=== PATIENT | female | born 1990 | race Caucasian/White ===

== ENCOUNTER 2019-08-15 22:49 | Inpatient (IN) | payer OTHER ==
[~2019-08-15] VITALS: Ht 162.6 cm; Wt 43.5 kg
[2019-08-15] MEDS ORDERED: IV NS 0.9% 1,000 ML BAG IV ONE (23:00)
--- NOTE | 2019-08-15 23:10 | NUR ---
PATIENT CAME TO ER RA C/O WEAKNESS. PATIENT PLACED IN BED 11 STATING THAT SHE WANTS TO LEAVE AND THIRSTY. PT DOES NOT ADMIT TO DRUG USE. PATIENT STATES THAT SHE HAS DKA. AAOX2. AWAKE AND CONFUSED. NO SOB. BREATHING EVENLY AND UNLABORED. CONNECTED TO MONITOR. BLOOD SUGAR- 176
--- NOTE | 2019-08-15 23:22 | NUR ---
MARSII AT BEDSIDE FOR EVALUATION
--- NOTE | 2019-08-15 23:22 | NUR ---
DAIRY EQUIPMENT SPECIALIST AT BEDSIDE FOR BLOOD DRAW.
--- NOTE | 2019-08-15 23:38 | NUR ---
SLUMBER ROOM ATTENDANT AT BEDSIDE FOR XRAY
[2019-08-15 23:40] LABS: BASOPHILS # (AUTO) 0.1 /CMM (0.0-0.2); BASOPHILS % (AUTO) 0.5 % (0.0-2.0); EOSINOPHILS % (AUTO) 0.5 % (0.0-6.0); HEMATOCRIT 44 % (33-45); HEMOGLOBIN 14.4 g/dL (11.5-14.8); LYMPHOCYTES # (AUTO) 1.8 /CMM (0.8-4.8); LYMPHOCYTES % (AUTO) 18.6 % (20.0-44.0); MEAN CORPUSCULAR HGB CONC 33 g/dl (31.0-36.0); MEAN CORPUSCULAR VOLUME 92 fL (82-100); MONOCYTES # (AUTO) 0.5 /CMM (0.1-1.30); MONOCYTES % (AUTO) 4.9 % (2.0-12.0); NEUTROPHILS # (AUTO) 7.5 /CMM (1.8-8.9); NEUTROPHILS % (AUTO) 75.5 % (43.0-81.0); PLATELET COUNT (AUTO) 574 /CMM (150-450)
[2019-08-15 23:46] LABS: ABG OXYGEN SATURATION 68.6 % (92.0-98.5); ABG PCO2 31.9 mmHg (35.0-45.0); ABG PH 7.333 (7.350-7.450); ABG PO2 35.6 mmHg (75.0-100.0); COHb 0.8 % (0.5-1.5); MetHb 0.5 % (0.0-1.5); O2Hb 67.7 % (94.0-97.0); SITE, ABG Other
[2019-08-15] MEDS ORDERED: ONDANSETRON HCL/PF 4 MG/2 ML VIAL ONE (23:48)
[2019-08-16] MEDS ORDERED: ONDANSETRON HCL/PF 4 MG/2 ML VIAL IV ONE
[2019-08-16 00:12] LABS: POTASSIUM 4.1 mmol/L (3.5-5.1)
--- NOTE | 2019-08-16 00:14 | NUR ---
ER SPOKE TO DR. RIVAS REGARDING PT ADMISSION.
[2019-08-16 00:18] LABS: ALBUMIN 3.8 g/dL (3.4-5.0); BILIRUBIN,DIRECT 0.1 mg/dL (0.0-0.2); BILIRUBIN,TOTAL 0.5 mg/dL (0.2-1.0); MAGNESIUM 2.2 mg/dL (1.8-2.4); PHOSPHORUS 1.9 mg/dL (2.5-4.9); TOTAL PROTEIN, SERUM 8.7 g/dL (6.4-8.2)
[2019-08-16] MEDS ORDERED: MAG HYDROX/AL HYDROX/SIMETH 30 ML UDC PO PRN (00:30)
[2019-08-16] MEDS ORDERED: MAGNESIUM HYDROXIDE 30 ML UDC PO PRN (00:30)
[2019-08-16] MEDS ORDERED: Z GUARD REMEDY 2 OZ OINT TP PRN (00:30)
[2019-08-16] MEDS ORDERED: IV NS 0.9% 1,000 ML IV SCH (00:30)
--- NOTE | 2019-08-16 00:35 | NUR ---
I&O CATH DONE, URINE SAMPLE COLLECTED AND SENT TO LAB.
[2019-08-16] MEDS ORDERED: LORAZEPAM INJ 2 MG/ML VIAL ONE (00:39)
[2019-08-16 00:40] LABS: APPEARANCE,URINE Clear (CLEAR); BILIRUBIN,URINE MODERATE (NEGATIVE); BLOOD, URINE Negative Ery/uL (NEGATIVE); COLOR,URINE Yellow (YELLOW); KETONES,URINE 80 (NEGATIVE); LEUKOCYTE ESTERASE ,URINE Negative (NEGATIVE); NITRITE, URINE Negative (NEGATIVE); PH,URINE 5.5 (5.0-8.0); PROTEIN,URINE 100 mg/dl (NEGATIVE); UGLUCOSE 500 MG/DL mg/dL (NEGATIVE); UROBILINOGEN,URINE 0.2 EU/dL (0.2)
[2019-08-16 01:00] VITALS: BP 132/88
[2019-08-16] MEDS ORDERED: LORAZEPAM INJ 2 MG/ML VIAL IV ONE (01:00)
--- NOTE | 2019-08-16 01:03 | NUR ---
report given to Renee WEBB.
[2019-08-16 01:10] LABS: ACETAMINOPHEN 0 ug/ml (10-30); ALCOHOL, BLOOD < 3 mg/dL (0-0); SALICYLATE 2.2 mg/dL (2.8-20.0)
--- NOTE | 2019-08-16 01:10 | NUR ---
MS RN OPENING NOTES: RECEIVED PT ON 2LPM VIA NC AND IS TOLERATING WELL. PT APPEARS TO BE LETHARGIC BUT IS ABLE TO STATE A FEW WORDS. "I DON'T FEEL GOOD." PT APPEARS T OBE ALTERED. PT HAS IV ON R INDEX FINGER #24G AND IS BEING INFUSED WITH 2L OF NS COMING FROM ER. BED KEPT IN LOW, LOCKED POSITION, AND SIDE RAILS X 3 UP. BED ALARM ACTIVATED. WILL CONTINUE TO MONITOR PT.
[2019-08-16 01:17] LABS: BACTERIA,URINE Few /HPF (None Seen); SQUAMOUS EPITHELIAL CELL,UR Few /HPF (None Seen)
[2019-08-16] MEDS: LORAZEPAM INJ 2 MG/ML VIAL IV PRN ×4 (06:25→23:04)
--- NOTE | 2019-08-16 06:28 | NUR ---
MS RN NOTES: PT MORE AWAKE AND STARTING TO SHOW SIGNS OF WITHDRAWAL. "I WANT TO SPEAK TO THE DOCTOR ABOUT MY OPIATE ABUSE." EXPLAINED TO HER THAT DOCTORS WILL BE MAKING THEIR ROUNDS SOON. PT WAS ADMINISTERED ATIVAN 1MG IV. WILL CONTINUE TO MONITOR.
--- NOTE | 2019-08-16 06:47 | NUR ---
MS RN CLOSING NOTES: ALL NEEDS WERE ATTENDED AND ANTICIPATED FOR. PT APPEARS TO BE MORE AWAKE THIS MORNING SHE IS ASKING TO SPEAK TO THE DOCTOR AND VERBALIZING HER OPIATE ADDICTION. PT IS MUCH MORE AROUSABLE COMPARED TO EARLIER AND OPENED HER EYES BRIEFLY. PT APPEARS TO BE WITHDRAWING. PT REMAINS ON 2LPM VIA NC AND IS TOLERATING WELL. NO SOB NOTED. NO S/S OF DISTRESS. PT HAS IV ON R INDEX FINGER #24 G AND IS BEING INFUSED WITH IV NS AT 100ML/HR. BED KEPT IN LOW, LOCKED POSITION, AND SIDE RAILS X 3UP. BED ALARM ACTIVATED. WILL ENDORSE TO AM NURSE FOR ANDREI.
[2019-08-16] MEDS ORDERED: K PHOS NEUTRAL 250 MG TABLET PO ONE (07:30)
[2019-08-16 08:00] VITALS: BP 140/86
[2019-08-16] MEDS: ONDANSETRON HCL/PF 4 MG/2 ML VIAL IVP PRN ×2 (10:35→20:06)
[2019-08-16] MEDS: IV NS 0.9% 1,000 ML IV PRN (10:44)
--- NOTE | 2019-08-16 11:00 | NUR ---
RN MS NOTES PATIENT VOMITING 4X TIMES AFTER CONSUMING FLUIDS.
[2019-08-16] MEDS ORDERED: DEXTROSE 50%-WATER 50 ML DISP.SYRIN IV PRN ×2 (11:30→13:30)
[2019-08-16] MEDS ORDERED: BLOOD SUGAR DIAGNOSTIC 1 EACH STRIP IN SCH (12:00)
--- NOTE | 2019-08-16 12:00 | NUR ---
RN NOTES PATIENT YELLING, MULTIPLE TIMES INSIDE THE ROOM. PATIENT IS NOT COOPERATIVE
[2019-08-16] MEDS: BLOOD SUGAR DIAGNOSTIC 1 EACH STRIP IN SCH ×3 (12:20→22:00)
[2019-08-16] MEDS: INSULIN REGULAR, HUMAN 100 UNIT/ML 3 ML VIAL SQ PRN ×2 (12:23→13:43)
--- NOTE | 2019-08-16 12:26 | NUR ---
RN MS NOTES PATIENT BLOOD SUGAR 502 - CALLED MD 10 UNITS OF INSULIN GIVEN PER DR ORDER
--- NOTE | 2019-08-16 12:28 | NUR ---
director of career services consult requested by Viet Santos [facility] for homelessness. Pt is a 29 year old female admitted to [facility] for opiate withdrawal. SW attempted to meet with pt and conduct social media marketing specialist assessment but pt unable to cooperate at this time due to physical state. SW will reattempt to assess pt at a later time.
--- NOTE | 2019-08-16 14:30 | NUR ---
RN MS NOTES ATTENDING NOTIFIED ABOUT PATIENT CONDITION. WITH BLOOD SUGAR AND WITHDRAWAL SYMPTOMS
--- NOTE | 2019-08-16 15:37 | NUR ---
RN NOTES PATIENT 1530 TOOK OFF MIDLINE
[2019-08-16 16:00] VITALS: BP 150/85
--- NOTE | 2019-08-16 16:00 | NUR ---
RN MS NOTES PATIENT HAS SITTER BY BED SIDE.
--- NOTE | 2019-08-16 17:00 | NUR ---
MS RN NOTES PATIENT FAMILY MEMBERS ARE CONCERNED THAT THE PATIENT IS NOT READY TO GO HOME AND LEAVE THE HOSPITAL. FAMILY IS CONCERNED ABOUT FMAILY NEED TO PAY FOR ANTIBIOTICS FOR THE PATIENT . CASE MANAGEMENT INFORMED
--- NOTE | 2019-08-16 17:04 | NUR ---
RN MS NOTES PATIENT BLOOD SUGAR 176 - NO COVERAGE- PATIENT IS VOMITING / NAUSEA.
--- NOTE | 2019-08-16 17:20 | NUR ---
MS RN NOTES PATIENT WAS TRYING TO GET OUT OF BED, TOOK OFF BOTH HER IV, PATIENT IS UN COOPERATIVE WITH HER CARE . DISTRACTIONS AND OTHER METHODS DONE PRIOR TO RESTRAINTS . PATIENT NEEDS SITTER AND RESTRAINTS BECAUSE PATIENTS GETS OUT OF BED CONSTANTLY. AND UNCOOPERATIVE
--- NOTE | 2019-08-16 18:45 | NUR ---
MS RN NOTES ATIVAN GIVEN AT 1600 IM PATIENT HAD NO MIDLINE. FORGOT TO SCAN THE MEDICATION . INPUTED AT 1830
--- NOTE | 2019-08-16 18:58 | NUR ---
MS RN NOTES PATIENT A/0 X1. PATIENT IS ON THE BED. WITH SITTER AT MEDSIDE. PATIENT ALSO HAS MEDIACAL SOFT RESTRAINTS BILATER ARMS. PATIENT WAS PUTTING IV AND ATTEMPTING TO BITE AND KICK STAFF. PATIENT IS CURRENTLY ON TELE MONITOR PER ADMITTED ORDERS .PATIENT IS SATURATING WELL NO SIGNS OF SOB, NO PAIN, EVEN AND UNLABORED BREATHING. BED LOCKED AND LOWEST POSITION, CALL LIGHT WITH IN REACH. ALL SAFETY PRECAUTIONS IMPLEMENTED. SITTER AT BED SIDE
--- NOTE | 2019-08-16 19:20 | NUR ---
MS RN NOTES RECEIVED ON BED APPEARS DROWSY,JUST MEDICATED WITH ATIVAN BY DAY NURSE.ON BILATERAL SOFT RESTRAINTS.SITTER AT BEDSIDE.IVF NS AT 75ML/HR RATE IN PROGRESS ON RADHA PICC LINE.WILL CONTINUE TO MONITOR STATUS.
[2019-08-16 20:00] VITALS: BP 142/91
--- NOTE | 2019-08-16 20:06 | NUR ---
MS RN NOTES VOMITED 2X,MEDICATED WITH ZOFRAN 4MG IV ORDERED PRN FOR N/V
--- NOTE | 2019-08-16 20:25 | NUR ---
MS RN NOTES EVENING CARE RENDERED,TOLERATED WELL,REPOSITION TO COMFORT
--- NOTE | 2019-08-16 23:04 | NUR ---
MS RN NOTES VERY RESTLESS,SCREAMS AT TIMES,MEDICATED WITH ATIVAN 0.5MG IV ORDERED PRN FOR ANXIETY/AGITATION.BILATERAL SOFT WRIST RESTRAINTS IN USED.SITTER AT BEDSIDE.
[2019-08-17] VITALS: BP 138/86
--- NOTE | 2019-08-17 | NUR ---
MS RN NOTES ACCU-CHECK BLOOD SUGAR CHECK 465,COVERED WITH HUMULIN R 10 UNITS GIVEN SQ ON LEFT DELTOID PER AGGRESSIVE SLIDING SCALE.
[2019-08-17] MEDS: BLOOD SUGAR DIAGNOSTIC 1 EACH STRIP IN SCH ×6 (00:07→22:23)
--- NOTE | 2019-08-17 00:15 | NUR ---
MS RN NOTES DR RIVAS MADE AWARE OF OF PATIENT BLOOD SUGAR WITH ORDER TO GIVE ANOTHER 8 UNITS OF HUMULIN R SQ NOTED AND CARRIED OUT.
[2019-08-17] MEDS: INSULIN REGULAR, HUMAN 100 UNIT/ML 3 ML VIAL SQ PRN ×3 (00:17→09:28)
--- NOTE | 2019-08-17 00:30 | NUR ---
MS RN NOTES HUMULIN R 8 UNITS GIVEN SQ ON RIGHT DELTOID ORDERED.WILL RE CHECK BLOOD SUGAR IN AN HOUR
[2019-08-17] MEDS: IV NS 0.9% 1,000 ML IV PRN (03:42)
[2019-08-17 04:00] VITALS: BP 148/93
--- NOTE | 2019-08-17 06:00 | NUR ---
MS RN NOTES ACCU-CHECK BLOOD SUGAR CHECK 199,COVERED WITH HUMULIN R 4 UNITS PER AGGRESSIVE SLIDING SCALE.
[2019-08-17 06:34] LABS: BASOPHILS # (AUTO) 0.1 /CMM (0.0-0.2); BASOPHILS % (AUTO) 0.6 % (0.0-2.0); HEMATOCRIT 39 % (33-45); HEMOGLOBIN 12.9 g/dL (11.5-14.8); LYMPHOCYTES # (AUTO) 1.9 /CMM (0.8-4.8); LYMPHOCYTES % (AUTO) 14.8 % (20.0-44.0); MEAN CORPUSCULAR HGB CONC 33 g/dl (31.0-36.0); MEAN CORPUSCULAR VOLUME 91 fL (82-100); MONOCYTES % (AUTO) 7.4 % (2.0-12.0); NEUTROPHILS # (AUTO) 9.9 /CMM (1.8-8.9); NEUTROPHILS % (AUTO) 77.2 % (43.0-81.0); PLATELET COUNT (AUTO) 561 /CMM (150-450); RED BLOOD CELL COUNT(AUTO) 4.32 MIL/uL (4.0-5.2); WHITE BLOOD COUNT (AUTO) 12.9 K/uL (4.3-11.0)
--- NOTE | 2019-08-17 06:45 | NUR ---
MS RN NOTES STILL DROWSY,BILATERAL SOFT RESTRAINTS IN USED,GOOD HANDS CIRCULATION NOTED.MORNING CARE RENDERED BY SITTER.NAUSEA/VOMITING IMPROVED.IVF IN PROGRESS.IN NO ACUTE DISTRESS.WILL ENDORSE TO DAY NURSE FOR ANDREI.
[2019-08-17 06:54] LABS: CALCIUM, SERUM 8.9 mg/dL (8.5-10.1); CREATININE 0.9 mg/dL (0.6-1.3); MAGNESIUM 2.1 mg/dL (1.8-2.4); PHOSPHORUS 2.6 mg/dL (2.5-4.9); POTASSIUM 4.6 mmol/L (3.5-5.1)
--- NOTE | 2019-08-17 07:00 | NUR ---
RN MS NOTES OPENING PATIENT A/O X1 PATIENT IS ASLEEP WHEN, WAKING THAT PATIENT UP THE PATIENT WILL MUR MUR AND TURN HER HEAD. PATIENT IS ON TELE MONITOR WITH SR, IN THE 90'S. NO SOB, NO ACUTE RESPIRATORY DISTRESS. PATIENT IS CURRENTLY ON BED REST. PATIENT HAS BILATERAL SOFT WRIST RESTRAINTS, CHECK BOTH WRIST FOR SKIN DAMANGE AND DISCOLORATION - NONE PATIENT HAS L BUTTOCKS BRUISE AND BILATERAL HEEL REDNESS. PATIENT HAS A RADHA MIDLINE. WITH NORMAL NS AT 100 ML/HR . ALL SAFETY PRECAUTIONS IMPLEMENTED. BED LOCKED AND LOWEST POSITION, CALL LIGHT WITH IN REACH. SITTER AT BED SIDE.
[2019-08-17 08:00] VITALS: BP 140/86
--- NOTE | 2019-08-17 09:28 | NUR ---
MS RN NOTES PATIENT BLOOD SUGAR 219 HOLD INSULIN - COVERAGE 6 AM WILL RECHECK AT NEXT BLOOD SUGAR CHECK
--- NOTE | 2019-08-17 10:26 | NUR ---
account services coordinator follow-up: SS consult requested by Viet Santos [facility] for homelessness. Pt is a 29 year old female admitted to [facility] for opiate withdrawal. SW reattempted to meet with pt today to conduct social worker psychiatric assessment but pt continues to be unable to engage in interview due to physical state. Pt is laying down with eyes closed; appears to be sleeping and is minimally responsive to SW when attempting to arouse. SW will reattempt to assess pt at a later time.
[2019-08-17 12:00] VITALS: BP 131/86
[2019-08-17 16:52] VITALS: BP 136/79
--- NOTE | 2019-08-17 18:21 | NUR ---
MS RN NOTES PATIENT BLOOD SUGAR 150. INSULIN HOLD. PATIENT ONLY EATTING A FEW BITES OF FOOD AND FALL ASLEEP. PATIENT STILL AT BED SIDE.
--- NOTE | 2019-08-17 18:43 | NUR ---
RN MS NOTES CLOSING PATIENT A/O X1 PATIENT IS RESTING COMFORTABLY ON THE BED. PATIENT HAS TELE MONITOR 90'S SR WITH OCCASIONAL PVC. PATIENT IS ON RA - AND TOLERATING WELL. PATIENT NO SOB, EVEN AND UNLABORED BREATHING. NO SIGNS OF ACUTE RESPIRATORY DISTRESS. PATIENT IS EATING BUT FALLS ASLEEP. PATIENT IS MORE COOPERATIVE WITH CARE. PATIENT STATED THAT SHE IS GLAD SHE IS HERE AND SHE THINKS SHE WOULD OF IF SHE WASN'T AT THE HOSPITAL. BED LOCKED AND LOWEST POSITION CALL LIGHT WITH IN REACH SITTER AT BED SITE. ALL SAFETY PRECAUTIONS IMPLEMENTED PER HOSPITAL PROTOCOL
--- NOTE | 2019-08-17 19:10 | NUR ---
MS/RN OPENING NOTES: RECEIVED PATIENT SLEEPING IN BED. RESPONDS TO VERBAL COMMANDS. A/O X1. PATIENT PATIENT TALKING INCOMPREHENSIBLE WORDS. ON TELE MONITOR WITH ST, IN THE 100'S. NO SOB, NO ACUTE RESPIRATORY DISTRESS. PATIENT IS CURRENTLY ON BED REST. PATIENT HAS BILATERAL SOFT WRIST RESTRAINTS, CHECK BOTH WRIST FOR SKIN DAMAGE AND DISCOLORATION. NONE AT THIS TIME. PATIENT HAS L BUTTOCKS BRUISE AND BILATERAL HEEL HAS REDNESS. PATIENT HAS LEFT UA MIDLINE. RUNNING NS AT 100 MLS/HR. ALL SAFETY PRECAUTIONS IMPLEMENTED. BED IS IN LOCKED AND LOWEST POSITION, CALL LIGHT WITH IN REACH. SITTER PRESENT AT BED SIDE. WILL CONTINUE MONITORING ACCORDINGLY.
[2019-08-17] MEDS: LORAZEPAM INJ 2 MG/ML VIAL IV PRN (20:17)
--- NOTE | 2019-08-17 20:17 | NUR ---
MS/RN NOTES: PATIENT IS RESTLESS AND VERY ANXIOUS, AND SCREAMING AT SITTER. PER PATIENT "I DON'T FEEL GOOD", ADMINISTERED ATIVAN 1 MG 0.5ML IV ORDERED PRN FOR ANXIETY/AGITATION. BILATERAL SOFT WRIST RESTRAINTS IN USED. SITTER PRESENT AT BEDSIDE. VITAL SIGNS WNL.
[2019-08-17 21:00] VITALS: BP 132/71
[2019-08-17] MEDS: *INSULIN REGULAR(HUMULIN R)HUM 100 UNIT/ML VIAL SQ PRN (22:37)
--- NOTE | 2019-08-17 22:40 | NUR ---
MS/RN NOTES: ACCU CHECK TAKEN AT 2200 WITH BLOOD SUGAR LEVEL OF 484. PROTOCOL INITIATED, REPEATED AND BLOOD SUGAR IS 497. NOTIFIED MD. 10 UNITS OF REGULAR INSULIN GIVEN PER SLIDING SCALE. DR. RIVAS IS AWARE AND ORDERED FOR ADDITIONAL 10 UNITS SQ ONCE. PATIENT IS IN STABLE CONDITION AT THIS TIME. SNACK (PUDDING) GIVEN AT BEDSIDE. WILL CONTINUE TO MONITOR PATIENT ACCORDINGLY. SITTER PRESENT AT BED SIDE.
[2019-08-17] MEDS ORDERED: INSULIN REGULAR, HUMAN 100 UNIT/ML 10 ML VIAL SQ ONE (23:00)
[2019-08-18] MEDS: BLOOD SUGAR DIAGNOSTIC 1 EACH STRIP IN SCH ×8 (00:36→21:38)
[2019-08-18] MEDS: *INSULIN REGULAR(HUMULIN R)HUM 100 UNIT/ML VIAL SQ PRN ×2 (00:41→21:40)
--- NOTE | 2019-08-18 00:44 | NUR ---
MS/RN NOTES: ACCU CHECK TAKEN FOR 0000 WITH BLOOD SUGAR LEVEL OF 356. 10 UNITS OF REGULAR INSULIN GIVEN PER SLIDING SCALE. PATIENT IS IN STABLE CONDITION AT THIS TIME. SMALL SNACK GIVEN AT BED SIDE. WILL CONTINUE TO MONITOR PATIENT ACCORDINGLY. SITTER PRESENT AT BED SIDE.
[2019-08-18] MEDS: IV NS 0.9% 1,000 ML IV PRN (01:43)
[2019-08-18] MEDS: LORAZEPAM INJ 2 MG/ML VIAL IV PRN ×2 (04:34→19:16)
--- NOTE | 2019-08-18 04:34 | NUR ---
MS/RN NOTES: PATIENT APPEARS ANXIOUS, AND YELLING INCOMPREHENSIBLE SENTENCES, ADMINISTERED ATIVAN 1 MG/0.5ML IV ORDERED PRN FOR ANXIETY/AGITATION. BILATERAL SOFT WRIST RESTRAINTS IN USED. SITTER PRESENT AT BEDSIDE. VITAL SIGNS WNL.
[2019-08-18] MEDS: INSULIN REGULAR, HUMAN 100 UNIT/ML 3 ML VIAL SQ PRN ×2 (06:06→11:46)
--- NOTE | 2019-08-18 06:26 | NUR ---
MS/RN CLOSING NOTES: Patient is in stable condition. No complains of pain at this time. Remains on room air, no sob noted, A/Ox1. No significant changes in condition. On regular diet. IV access on the left upper arm PICC line, patent and intact, NS running @ 100 ml per hour. Blood sugar level of 92 at 0600. No insulins given as per sliding scale order. Safety measures kept in place. Bed at the lowest setting and locked, call light within reach, side rails up x2. All nursing needs met and provided. Kept patient warm and comfortable throughout the shift. Sitter at bedside. Will give report to day shift RN for ANDREI bedside.
[2019-08-18 06:51] LABS: BASOPHILS % (AUTO) 0.3 % (0.0-2.0); EOSINOPHILS % (AUTO) 0.1 % (0.0-6.0); HEMATOCRIT 35 % (33-45); HEMOGLOBIN 11.6 g/dL (11.5-14.8); LYMPHOCYTES # (AUTO) 2.7 /CMM (0.8-4.8); LYMPHOCYTES % (AUTO) 29.3 % (20.0-44.0); MEAN CORPUSCULAR HGB CONC 34 g/dl (31.0-36.0); MEAN CORPUSCULAR VOLUME 89 fL (82-100); MONOCYTES # (AUTO) 0.7 /CMM (0.1-1.30); MONOCYTES % (AUTO) 7.3 % (2.0-12.0); NEUTROPHILS # (AUTO) 5.9 /CMM (1.8-8.9); PLATELET COUNT (AUTO) 453 /CMM (150-450); RED BLOOD CELL COUNT(AUTO) 3.88 MIL/uL (4.0-5.2); WHITE BLOOD COUNT (AUTO) 9.3 K/uL (4.3-11.0)
[2019-08-18 07:05] LABS: CALCIUM, SERUM 8.4 mg/dL (8.5-10.1); CREATININE 0.7 mg/dL (0.6-1.3); POTASSIUM 3.3 mmol/L (3.5-5.1)
[2019-08-18 08:00] VITALS: BP 118/71
[2019-08-18] MEDS ORDERED: POTASSIUM CHLORIDE 20 MEQ TAB.PRT.SR PO SCH (11:00)
[2019-08-18] MEDS: ACETAMINOPHEN 325 MG TABLET PO PRN (11:16)
[2019-08-18] MEDS: ONDANSETRON HCL/PF 4 MG/2 ML VIAL IVP PRN (12:31)
[2019-08-18 16:00] VITALS: BP 137/84
--- NOTE | 2019-08-18 19:51 | NUR ---
MS WEBB NOTES RECEIVED PATIENT AWAKE IN BED WITH NO DISTRESS NOTED. CALL LIGHT WITHIN REACH. SITTER AT BEDSIDE. PICC LINE INTACT AND PATENT. NO C/O PAIN OR DISCOMFORT. BED IN LOW LOCK SETTING. ROOM FREE OF CLUTTER AND BELONGINGS KEPT NEAR BEDSIDE. WILL CONTINUE TO MONITOR. Addendum: 08/18/19 at 2020 by LUIS AMAYA RN *ERROR* MIDLINE INTACT AND PATENT
--- NOTE | 2019-08-18 22:25 | NUR ---
HS BS 460 AND COVERED WITH REGULAR INSULIN 10UNITS ORDERED. AFTER RECHECK, BS 403. DR. RIVAS MADE AWARE WITH ORDER FOR ADDITIONAL 10U REGULAR INSULIN. ORDER READ BACK, VERIFIED, NOTED AND CARRIED OUT. PATIENT ASLEEP IN STABLE CONDITION. ABLE TO AROUSE EASILY. WILL CONTINUE TO MONITOR
[2019-08-18] MEDS ORDERED: INSULIN REGULAR, HUMAN 100 UNIT/ML 10 ML VIAL SQ ONE (22:30)
--- NOTE | 2019-08-19 00:36 | NUR ---
CONTINUATION OF CARE GIVEN TO MCKENNA WEBB Addendum: 08/19/19 at 0039 by LUIS AMAYA RN PATIENT ASLEEP IN STABLE CONDITION
--- NOTE | 2019-08-19 00:36 | NUR ---
MS RN NOTES RECEIVED PT FROM SURJIT. PATIENT IN BED ASLEEP, ALERT AND ORIENTED X 2. BREATHING EVEN AND UNLABORED ON ROOM AIR. SHOWS NO SIGNS OF ACUTE DISTRESS, NO ACUTE PAIN. SITTER AT BEDSIDE. RADHA MIDLINE CLEAN DRY AND INTACT. SHOWS NO SIGN OF INFILTRATION, NO REDNESS. SAFETY PRECAUTIONS IN PLACE. BED LOWEST POSITION LOCKED AND CALL LIGHT KEPT WITHIN REACH. WILL CONTINUE TO MONITOR.
[2019-08-19] MEDS: IV NS 0.9% 1,000 ML IV PRN ×2 (06:02→14:48)
--- NOTE | 2019-08-19 06:35 | NUR ---
MS RN NOTES PATIENT IN BED ASLEEP, ALERT AND ORIENTED X 2. BREATHING EVEN AND UNLABORED ON ROOM AIR. SHOWS NO SIGNS OF ACUTE DISTRESS, NO ACUTE PAIN. SITTER AT BEDSIDE. RADHA MIDLINE CLEAN DRY AND INTACT. SHOWS NO SIGN OF INFILTRATION, NO REDNESS. ALL MEDICATIONS GIVEN DUE. SAFETY PRECAUTIONS IN PLACE. BED LOWEST POSITION LOCKED AND CALL LIGHT KEPT WITHIN REACH. WILL ENDORSE TO ONCOMING NURSE.
[2019-08-19] MEDS: BLOOD SUGAR DIAGNOSTIC 1 EACH STRIP IN SCH ×4 (06:37→21:39)
[2019-08-19] MEDS: INSULIN REGULAR, HUMAN 100 UNIT/ML 3 ML VIAL SQ PRN ×3 (06:39→17:09)
[2019-08-19 06:52] LABS: BASOPHILS % (AUTO) 0.2 % (0.0-2.0); EOSINOPHILS % (AUTO) 0.2 % (0.0-6.0); HEMATOCRIT 36 % (33-45); HEMOGLOBIN 11.8 g/dL (11.5-14.8); LYMPHOCYTES # (AUTO) 2.6 /CMM (0.8-4.8); LYMPHOCYTES % (AUTO) 31.8 % (20.0-44.0); MEAN CORPUSCULAR HGB CONC 33 g/dl (31.0-36.0); MEAN CORPUSCULAR VOLUME 90 fL (82-100); MONOCYTES # (AUTO) 0.5 /CMM (0.1-1.30); MONOCYTES % (AUTO) 6.6 % (2.0-12.0); NEUTROPHILS # (AUTO) 5.1 /CMM (1.8-8.9); NEUTROPHILS % (AUTO) 61.2 % (43.0-81.0); PLATELET COUNT (AUTO) 376 /CMM (150-450); RED BLOOD CELL COUNT(AUTO) 3.98 MIL/uL (4.0-5.2); WHITE BLOOD COUNT (AUTO) 8.3 K/uL (4.3-11.0)
[2019-08-19 07:03] LABS: CREATININE 0.7 mg/dL (0.6-1.3); POTASSIUM 3.8 mmol/L (3.5-5.1)
--- NOTE | 2019-08-19 07:37 | NUR ---
RN OPENING NOTE PT WAS RECEIVED IN BED AT LOWEST AND LOCKED POSITION WITH SIDE RAILS UP X2, A/O X2 CURRENTLY RESTING IN BED, SITTER AT BEDSIDE, NO S/S OF ANY PAIN OR DISTRESS AT THIS TIME, MIDLINE S PATENT AND INTACT WITH IVF RUNNING, LAST BS WAS 293 AND PER NIGHT RN SHE ADMINISTERED 12 UNITS, SAFETY PRECAUTIONS IN PLACE, CALL LIGHT IN REACH, WILL MONITOR ACCORDINGLY Addendum: 08/19/19 at 0914 by LATHA CHOI RN SITTER PRESENT AT BEDSIDE
[2019-08-19] MEDS: LORAZEPAM INJ 2 MG/ML VIAL IV PRN ×4 (09:06→21:38)
[2019-08-19] MEDS: ACETAMINOPHEN 325 MG TABLET PO PRN (12:33)
--- NOTE | 2019-08-19 12:46 | NUR ---
RN NOTE HOSPITALIST JASON JEFFERSON INFORMED OF PT CRYING AND COMPLAINING OF PAIN AND INFORMED THAT TYLENOL IS NOT WORKING FOR HER. ORDER RECEIVED FOR NORCO 5/325 Q6H PRN, WILL IMPLEMENT AND CARRY OUT.
[2019-08-19] MEDS: HYDROCODONE/APAP 5/325MG 1 EACH TABLET PO PRN (16:57)
--- NOTE | 2019-08-19 18:20 | NUR ---
RN CLOSING NOTE PT IN BED IN LOWEST AND LOCKED POSITION WITH SIDE RAILS UIP X2, CURRENTLY ASLEEP BUT A/O X2-3 BREATHING EVEN AND UNLABORED WITH NO DISTRESS OR PAIN AT THIS TIME, MIDLINE IS PATENT AND INTACT WITH IVF RUNNING, SITTER AT BEDSIDE, SAFETY PRECAUTIONS IN PLACE, CALL LIGHT IN REACH, ALL NEEDS ATTENDED TO, WILL ENDORSE TO NIGHT RN FOR ANDREI.
--- NOTE | 2019-08-19 19:43 | NUR ---
MS RN NOTES RECEIVED PATIENT ASLEEP IN BED WITH NO DISTRESS NOTED. CALL LIGHT WITHIN REACH. SITTER AT BEDSIDE. MID LINE INTACT AND PATENT. BED IN LOW LOCK SETTING. ROOM FREE OF CLUTTER AND BELONGINGS KEPT NEAR BEDSIDE. WILL CONTINUE TO MONITOR.
[2019-08-19] MEDS: INSULIN GLARGINE, 100 UNIT/ML CARTRIDGE SQ SCH (22:24)
[2019-08-19] MEDS: *INSULIN REGULAR(HUMULIN R)HUM 100 UNIT/ML VIAL SQ PRN (22:24)
[2019-08-20] MEDS: LORAZEPAM INJ 2 MG/ML VIAL IV PRN ×5 (02:43→20:15)
[2019-08-20] MEDS: IV NS 0.9% 1,000 ML IV PRN (02:47)
--- NOTE | 2019-08-20 06:13 | NUR ---
MS RN NOTES PATIENT AWAKE IN BED. CALL LIGHT WITHIN REACH. SITTER AT BEDSIDE. PATIENT WITH INTERMITTENT EPISODES OF TRYING TO GET OUT OF BED UNASSISTED, CRYING, AND/OR YELLING FOR NURSE OR MD. MID LINE INTACT AND PATENT. BED IN LOW LOCK SETTING ROOM FREE OF CLUTTER AND BELONGINGS KEPT NEAR BEDSIDE. WILL CONTINUE TO MONITOR. Addendum: 08/20/19 at 0616 by LUIS AMAYA RN PATIENT REFUSED DIAPER CHANGES AND SKIN ASSESSMENT WITH PICTURES DESPITE CONTINUED ENCOURAGEMENT
[2019-08-20] MEDS: INSULIN REGULAR, HUMAN 100 UNIT/ML 3 ML VIAL SQ PRN ×3 (06:40→21:16)
[2019-08-20 07:17] LABS: BASOPHILS # (AUTO) 0.1 /CMM (0.0-0.2); BASOPHILS % (AUTO) 0.8 % (0.0-2.0); EOSINOPHILS % (AUTO) 0.7 % (0.0-6.0); HEMATOCRIT 34 % (33-45); HEMOGLOBIN 11.2 g/dL (11.5-14.8); LYMPHOCYTES # (AUTO) 2.8 /CMM (0.8-4.8); MEAN CORPUSCULAR HGB CONC 34 g/dl (31.0-36.0); MEAN CORPUSCULAR VOLUME 89 fL (82-100); MONOCYTES # (AUTO) 0.4 /CMM (0.1-1.30); NEUTROPHILS # (AUTO) 4.4 /CMM (1.8-8.9); NEUTROPHILS % (AUTO) 57.5 % (43.0-81.0); PLATELET COUNT (AUTO) 316 /CMM (150-450); RED BLOOD CELL COUNT(AUTO) 3.75 MIL/uL (4.0-5.2); WHITE BLOOD COUNT (AUTO) 7.7 K/uL (4.3-11.0)
[2019-08-20] MEDS: BLOOD SUGAR DIAGNOSTIC 1 EACH STRIP IN SCH ×4 (07:29→21:07)
[2019-08-20 07:31] LABS: CALCIUM, SERUM 8.4 mg/dL (8.5-10.1); CREATININE 0.7 mg/dL (0.6-1.3); POTASSIUM 3.3 mmol/L (3.5-5.1)
--- NOTE | 2019-08-20 07:46 | NUR ---
MS/RN Patient received AO x 2-3, able to response all stimuli. Patient does no c/o pain or any discomfort at this time, intact IV site, respiratory even and unlabored, skin is warm and dry to touch. Sitter at bed side, call light within reach, will continue to monitor for safety.
[2019-08-20 08:00] VITALS: BP 123/75
[2019-08-20] MEDS ORDERED: POTASSIUM CHLORIDE 20 MEQ TAB.PRT.SR PO ONE (08:00)
[2019-08-20] MEDS: HYDROCODONE/APAP 5/325MG 1 EACH TABLET PO PRN (12:45)
--- NOTE | 2019-08-20 15:22 | NUR ---
MS/RN Spoke with Nadia Tejada/Mother who wants to spoke with social secretary or showcase maker regarding discharge placement, given Gabe Tejada/Father and Nadia Tejada phone number to ANNA/Trino.
[2019-08-20 16:00] VITALS: BP 136/93
--- NOTE | 2019-08-20 16:55 | NUR ---
Social work consult requested by Viet Santos [facility] for homelessness. Pt is a 29 year old female who was admitted to [facility] for opiate withdrawal. Pt was resting in her bed and was oriented x 3 (person, place, situation). Pt presented as lethargic and spoke in a low voice. Pt states she has been homeless for 2 years and receives $200 in general relief benefits. Pt is receptive to emergency halfway options, and pt accepted to go to a winter halfway [ [facility]; pick pulling machine operator address: [address] [place] [address]]. DESMOND also provided pt with the following housing and health services referrals: [facility] [address] [place] [address]; , [facility] [address] [place] [address]; , and [facility] [address] [place] [address]; . DESMOND inquired if pt was interested in substance abuse treatment programs and pt states she was receiving services at [facility] [address] [facility] [address]; [phone], and was open to returning to this facility again. DESMOND called Radha, Java Application Developer at [facility], at [phone] x [phone] and left voicemail. DESMOND also provided pt with the additional treatment program referrals: [facility]; [phone] and [facility] [address] [place] [address]; [phone]. [facility]eless Resources Directory and health and mental health clinic referrals were also provided. Pt denies suicidal and homicidal ideation at this time. Pt has signed homeless waiver and it has been placed in her medical chart. Pt will require a TAP card upon discharge. No other services needed at this time. SW is available if needed.
--- NOTE | 2019-08-20 17:00 | NUR ---
patient's BS level 565 . MD notified and 20 units regular insulin given per sliding scale. Will recheck BS in 30 min
--- NOTE | 2019-08-20 17:08 | NUR ---
no new orders from MD regarding BS level
--- NOTE | 2019-08-20 17:30 | NUR ---
Rechecked BS 469, will recheck the end of the shift.
--- NOTE | 2019-08-20 18:13 | NUR ---
MS/RN Closing note Patient in bed, denies any discomfort, kept low bed position and elevated HOB. Intact on IV site, picc line , and fistula. Skin is warn and dry to touch, no respiratory distress observed. Will endorse night nurse. Addendum: 08/20/19 at 1823 by MAXINE ISSA RN Wrong patient.
--- NOTE | 2019-08-20 18:25 | NUR ---
MS/RN Closing note Patient in bed, AO x 2-3, skin is warm and dry to touch, no respiratory distress observed, given Ativan as needed Q4 hours. Sitter at bed side for safety, kept low positioned bed and elevated HOB. Will endorse night nurse.
--- NOTE | 2019-08-20 18:45 | NUR ---
MS/RN Patient noticed a bump( w:2.5 cm x L: 2 cm x D: 0 cm) with pus drainage on top of head. Picture taken, and clean with NS and covered by dry dressing. Endorsed cardiothoracic anesthesia technician.
--- NOTE | 2019-08-20 19:49 | NUR ---
MS/RN OPENING NOTES RECEIVED PATIENT IN BED, RESPIRATIONS EVEN AND UNLABORED, ALERT X3, ABLE TO VERBALIZE NEEDS, LETHARGIC AND REQUESTING FOR MORPHINE, PATIENT AM RN ASSESSED PATIENT HEAD WITH WOUND AND ABSCESS THAAT REQUIRE WOUND TREATMENT, PATIENT PREVIOUSLY WANTED TO GO AMA BUT LATER CHANGED HER MIND. MD RIVAS INFORMED ABOUT AMA THAT PATIENT REQUESTED BUT PATIENT REFUSE TO GO AND SIGN PAPER. SAID WILL STAY TONIGHT. SITTER AT BEDSIDE. WILL MONITOR.
[2019-08-20 20:00] VITALS: BP 119/72
--- NOTE | 2019-08-20 20:19 | NUR ---
MS/RN NOTES ATIVAN IV 0.5ML//1MG REQUESTED BY PATIENT, TOLERATED WELL, LEFT UPPER ARM MIDLINE PATENT. TO MONITOR FOR INABILITY TO RELAX.
[2019-08-20] MEDS: INSULIN GLARGINE, 100 UNIT/ML CARTRIDGE SQ SCH (21:14)
--- NOTE | 2019-08-20 21:30 | NUR ---
ms/rn notes BS AT 275 GAVE SNACKS
--- NOTE | 2019-08-20 22:00 | NUR ---
MS/RN NOTES PATIENT VERBALIZED THE NEED TO LEAVE AND REPORTED HAVING WITHRAWAL FROM [employer]PIODS, DISCUSSES PLAN FOR SAFETY BUT PATIENT REFUSED TO LISTEN AND SIGNED CONSENT FOR AMA AND HOMELESS WAIVER FORM CHARGE NURSE, MOLD CARPENTER AND DR RIVAS MADE AWARE, ID BAND REMOVED, LEFT UPPER ARM MIDLINE REMOVED. CHANGE TO OWN CLOTHES WITH SOCKS ON. PATIENT WAS ESCORTED DOWN NEAR ER. REPORTED SHE WOULD BE OUTSIDE.,
--- NOTE | 2019-08-20 22:47 | NUR ---
MS/RN NOTES FAMILY- MOTHER OF PATIENT WAS CONTACTED VIA PHONE AND WAS MADE AWARE REGARDING PATIENT DECISION TO LEAVE THE HOSPITAL AGAINST MEDICAL ADVICE, PHONE NUMBER CONTACTED TIMOTHY AT [phone]. KANNAN PROVIDED EDUCATION,
== END 2019-08-20 22:10 | disposition left against medical advice (07) | DRG 189 ==
LOC: ER 22:52 → EDBD 08-16 00:49 → MED 08-16 00:49
PROVIDERS: ADMIT Nurse Practitioner Acute Care; ATTEND Nurse Practitioner Acute Care
DX: J96.01 Acute respiratory failure with hypoxia (principal); G92 Toxic encephalopathy; F11.23 Opioid dependence with withdrawal; Z79.4 Long term (current) use of insulin; Z59.0 Homelessness; F15.10 Other stimulant abuse, uncomplicated; E83.39 Other disorders of phosphorus metabolism; E87.6 Hypokalemia; E10.65 Type 1 diabetes mellitus with hyperglycemia
CPT/HCPCS: 36415; 36600; 71045-TC; 80048-TC; 80076-TC; 80305; 81000-TC; 82010-TC; 82803-TC; 82962-TC; 83605-TC; 83735-TC; 84100-TC; 84702-TC; 84703-TC; 85025-TC; 85730-TC; 87040-TC; G0378; G0480; J1815; J2060; J2405; J7030